=== PATIENT | female | born 1990 | race African-American/Black ===

== ENCOUNTER 2018-05-06 12:57 | Observation (INO) | payer OTHER ==
[2018-05-06] MEDS ORDERED: IV RINGERS,LACTATED 1000ML 1,000 ML IV (13:24)
[2018-05-06 14:01] LABS: AMNIO PT NEGATIVE
[2018-05-06 14:02] LABS: NEG OBC AMNIO NEG; POS OBC AMNIO POS
[2018-05-06 14:10] LABS: BILIRUBIN,URINE NEGATIVE (NEG); CLARITY,URINE CLEAR; COLOR,URINE YELLOW; GLUCOSE,URINE 500 mg/dL (NEG); NITRITE,URINE NEGATIVE (NEG); PH,URINE 6.5; PROTEIN,URINE NEGATIVE (NEG-TRACE)
[2018-05-06 14:16] LABS: BARBITURATES NEG (NEG); BENZODIAZEPINES NEG (NEG); CANNABINOIDS POS (NEG); COCAINE NEG (NEG); METHADONE NEG (NEG); OPIATES NEG (NEG); PHENCYCLIDINE NEG (NEG)
[2018-05-06 14:17] LABS: AMPHETAMINE/METHAMPHETAMINE NEG (NEG); ETHANOL, URINE NEG (NEG)
[2018-05-06 14:34] LABS: BACTERIA,URINE MODERATE /HPF (0-FEW); RBC,URINE 0 /HPF (0-2); SQUAMOUS EPITHELIAL CELL,UR MOD /LPF
== END 2018-05-06 14:55 | disposition home or self-care (01) ==
LOC: 3 SO LND 12:57
DX: O26.893 Other specified pregnancy related conditions, third trimester (principal); R10.9 Unspecified abdominal pain; Z3A.27 27 weeks gestation of pregnancy; Z79.899 Other long term (current) drug therapy
CPT/HCPCS: 36415; 80307; 81001; 84112; 87086; G0378; G0379

== ENCOUNTER 2020-01-18 14:35 | Emergency (ER) | payer SELFPAY ==
[~2020-01-18] VITALS: Ht 165.1 cm; Wt 56.8 kg
--- NOTE | 2020-01-18 15:42 | PHYS DOC ---
Adult General Chief Complaint Chief Complaint: ABDOMINAL PAIN HPI HPI Patient is a 29 year old female who presents with yesterday had a episode where she felt faint and never passed out but there was a woman walking ask her and call her. She states she did not fall or hit her head. She states for the last week she has had left lower sharp pains that come and go. She currently has no pain and no complaints. Patient's test in the ED is positive. Patient states she has not had a period since mid November. Review of Systems Review of Systems Cardiovascular: Palpitations GI: abdominal pain, denies nausea, vomiting, bloody stools or diarrhea [] Neurologic: Syncopal episode. Denies headache, focal weakness or sensory changes [] All other systems were reviewed and found to be within normal limits, except as documented in this note. Allergies Allergies Allergies Coded Allergies Type Severity Reaction Last Updated Verified No Known Drug Allergies 05/06/18 No Physical Exam Physical Exam Constitutional: Well developed, well nourished, no acute distress, non-toxic appearance. [] HENT: Normocephalic, atraumatic, bilateral external ears normal, oropharynx moist, no oral exudates, nose normal. [] Eyes: PERRLA, EOMI, conjunctiva normal, no discharge. [] Neck: Normal range of motion, no tenderness, supple, no stridor. [] Cardiovascular:Heart rate regular rhythm, no murmur [] Lungs & Thorax: Bilateral breath sounds clear to auscultation [] Abdomen: Bowel sounds normal, soft, no tenderness, no masses, no pulsatile masses. [] Skin: Warm, dry, no erythema, no rash. [] Back: No tenderness, no CVA tenderness. [] Extremities: No tenderness, no cyanosis, no clubbing, ROM intact, no edema. [] Neurologic: Alert and oriented X 3, normal motor function, normal sensory function, no focal deficits noted. [] Psychologic: Affect normal, judgement normal, mood normal. Normal Physical Exam[] Current Patient Data Vital Signs Vital Signs Date Time Temp Pulse Resp B/P (MAP) Pulse Ox O2 Delivery O2 Flow Rate FiO2 01/18/20 15:39 97.9 78 16 120/56 (77) 100 Room Air 97.9 Lab Values Laboratory Tests Test 01/18/20 14:35 01/18/20 15:33 01/18/20 16:00 Urine Collection Type Unknown Urine Color Yellow Urine Clarity Clear Urine pH 7.0 (<5.0-8.0) Urine Specific [place] 1.020 (1.000-1.030) Urine Protein Negative mg/dL (NEG-TRACE) Urine Glucose (UA) Negative mg/dL (NEG) Urine Ketones (Stick) Negative mg/dL (NEG) Urine Blood Negative (NEG) Urine Nitrite Negative (NEG) Urine Bilirubin Negative (NEG) Urine Urobilinogen Dipstick 1.0 mg/dL (0.2 mg/dL) Urine Leukocyte Esterase Trace (NEG) Urine RBC 0 /HPF (0-2) Urine WBC 1-4 /HPF (0-4) Urine Squamous Epithelial Cells Many /LPF Urine Bacteria Few /HPF (0-FEW) Urine Mucus Marked /LPF POC Urine HCG, Qualitative Hcg positive (Negative) White Blood Count 6.3 x10^3/uL (4.0-11.0) Red Blood Count 4.26 x10^6/uL (3.50-5.40) Hemoglobin 13.5 g/dL (12.0-15.5) Hematocrit 40.0 % (36.0-47.0) Mean Corpuscular Volume 94 fL (79-100) Mean Corpuscular Hemoglobin 32 pg (25-35) Mean Corpuscular Hemoglobin Concent 34 g/dL (31-37) Red Cell Distribution Width 14.2 % (11.5-14.5) Platelet Count 318 x10^3/uL (140-400) Neutrophils (%) (Auto) 62 % (31-73) Lymphocytes (%) (Auto) 30 % (24-48) Monocytes (%) (Auto) 5 % (0-9) Eosinophils (%) (Auto) 3 % (0-3) Basophils (%) (Auto) 1 % (0-3) Neutrophils # (Auto) 3.9 x10^3/uL (1.8-7.7) Lymphocytes # (Auto) 1.9 x10^3/uL (1.0-4.8) Monocytes # (Auto) 0.3 x10^3/uL (0.0-1.1) Eosinophils # (Auto) 0.2 x10^3/uL (0.0-0.7) Basophils # (Auto) 0.1 x10^3/uL (0.0-0.2) Maternal Serum HCG Beta Subunit 494915 mIU/mL (0-5) H Sodium Level 136 mmol/L (136-145) Potassium Level 3.5 mmol/L (3.5-5.1) Chloride Level 98 mmol/L (98-107) Carbon Dioxide Level 25 mmol/L (21-32) Anion Gap 13 (6-14) Blood Urea Nitrogen 9 mg/dL (7-20) Creatinine 0.6 mg/dL (0.6-1.0) Estimated GFR (Cockcroft-Gault) 145.1 BUN/Creatinine Ratio 15 (6-20) Glucose Level 72 mg/dL (70-99) Calcium Level 9.4 mg/dL (8.5-10.1) Total Bilirubin 0.4 mg/dL (0.2-1.0) Aspartate Amino Transferase (AST) 15 U/L (15-37) Alanine Aminotransferase (ALT) 18 U/L (14-59) Alkaline Phosphatase 77 U/L (46-116) Total Protein 8.4 g/dL (6.4-8.2) H Albumin 4.6 g/dL (3.4-5.0) Albumin/Globulin Ratio 1.2 (1.0-1.7) Lipase 114 U/L (73-393) Laboratory Tests 01/18/20 16:00 Laboratory Tests 01/18/20 16:00 EKG EKG NSR[] Interpretation Time: [address] Ryan Radiology/Procedures Radiology/Procedures [] Impressions: [facility] [address] [place] [address] IMAGING REPORT Signed PATIENT: CINTHIA MERCER ACCOUNT: [id number] : 1990 LOCATION: ER AGE: 29 SEX: F EXAM STATUS: REG ER ORD. PHYSICIAN: MERLE ROJAS APRN REASON: , left lower quad pain PROCEDURE: OB <14 WKS W/TV Study: OB <14 WKS W/TV DATE: 01/18/2020 3:38 PM INDICATION: Left lower quadrant pain in the setting of a known . COMPARISON: None TECHNIQUE: Transabdominal ultrasonography of the pelvis was performed. Color Doppler and duplex were utilized as appropriate. FINDINGS: The uterus measures 14.8 x 5.1 x 7.9 cm. Uterine echotexture is within normal limits. Intrauterine gestational sac measuring 3.0 x 1.8 x 2.9 cm for a mean gestational sac size of 2.6 cm. pole with a crown-rump length of 1.2 cm. Estimated gestational age by ultrasound of 7 weeks 3 days. No subchorionic hemorrhage is identified. heart rate of 149 bpm. The right ovary measures 4.6 x 2.5 x 3.9 cm. Right ovarian cyst measures 3.1 x 3.0 x 3.6 in meters. Normal Doppler flow to the right ovary. The left ovary measures 2.5 x 2.1 x 3.5 cm with normal Doppler flow. No free fluid within the pelvic cul-de-sac. IMPRESSION: 1. Single live intrauterine with an estimated gestational age by ultrasound of 7 weeks 3 days. No complicating features. 2. The ovaries are within normal limits for patient age and maintain normal Doppler flow. Electronically signed by: MERYL LAM MD (01/18/2020 4:59 PM) [facility] [place] DICTATED and SIGNED BY: MERYL LAM MD DATE: 01/18/201658 Course & Med Decision Making Course & Med Decision Making Pertinent Labs and Imaging studies reviewed. (See chart for details) Alert and oriented. Speaks full clear sentences. Ambulatory the steady gait. PERRLA. No neurological deficits. Abdomen is soft and nontender. Denies any abnormal vaginal discharge. Denies any vaginal bleeding. Denies chest pain, soa, cough, fever, back pain, neck pain, dysuria, nausea, vomiting, diarrhea, we akness, numbness or tingling, vision changes, headache, dizziness. Urinalysis contaminated but positive for . Blood work unremarkable. [] Dragon Disclaimer Dragon Disclaimer This electronic medical record was generated, in whole or in part, using a voice recognition dictation system. Departure Departure Impression: Primary Impression: Additional Impression: Fainting spell Disposition: 01 HOME, SELF-CARE Condition: STABLE Referrals: OLEKSANDR KAUR (PCP) JEANETH MONTANEZ Jr, MD Patient Instructions: ABCs of Additional Instructions: DRINK PLENTY OF FLUIDS. EAT REGULARLY. BEGIN TAKING VITAMINS. FOLLOW UP WITH A OB DOCTOR SOON POSSIBLE. TAKE ONLY TYLENOL FOR PAIN. Problem Qualifiers Primary Impression: Weeks of gestation: unspecified Qualified Codes: Z34.90 - Encounter for supervision of normal , unspecified, unspecified trimester MERLE ROJAS APRN Jan 18, 2020 15:42
[2020-01-18 15:48] LABS: BILIRUBIN,URINE NEGATIVE (NEG); CLARITY,URINE CLEAR; COLOR,URINE YELLOW; NITRITE,URINE NEGATIVE (NEG); PROTEIN,URINE NEGATIVE (NEG-TRACE)
[2020-01-18 15:56] LABS: BACTERIA,URINE FEW /HPF (0-FEW); RBC,URINE 0 /HPF (0-2); SQUAMOUS EPITHELIAL CELL,UR MANY /LPF
[2020-01-18 16:14] LABS: BASO # 0.1 x10^3/uL (0.0-0.2); BASO % 1 % (0-3); EOS # 0.2 x10^3/uL (0.0-0.7); EOS % 3 % (0-3); HEMOGLOBIN 13.5 g/dL (12.0-15.5); LYMPH # 1.9 x10^3/uL (1.0-4.8); LYMPH % 30 % (24-48); MEAN CORPUSCULAR HEMOGLOBIN 32 pg (25-35); MEAN CORPUSCULAR HGB CONC 34 g/dL (31-37); MEAN CORPUSCULAR VOLUME 94 fL (79-100); MONO # 0.3 x10^3/uL (0.0-1.1); MONO % 5 % (0-9); NEUT # 3.9 x10^3/uL (1.8-7.7); NEUT % 62 % (31-73); PLATELET COUNT 318 x10^3/uL (140-400); RED BLOOD COUNT 4.26 x10^6/uL (3.50-5.40); RED CELL DISTRIBUTION WIDTH 14.2 % (11.5-14.5); WHITE BLOOD COUNT 6.3 x10^3/uL (4.0-11.0)
[2020-01-18 16:24] LABS: CALCIUM 9.4 mg/dL (8.5-10.1); CREATININE 0.6 mg/dL (0.6-1.0); GFR 145.1; POTASSIUM 3.5 mmol/L (3.5-5.1)
[2020-01-18 16:29] LABS: ALBUMIN 4.6 g/dL (3.4-5.0); ALBUMIN/GLOBULIN RATIO 1.2 (1.0-1.7); TOTAL BILIRUBIN 0.4 mg/dL (0.2-1.0); TOTAL PROTEIN 8.4 g/dL (6.4-8.2)
[2020-01-18 17:00] VITALS: BP 116/74
--- NOTE | 2020-01-18 17:02 | RAD ---
Study: us OB <14 WKS W/TV DATE: 01/18/2020 3:38 PM INDICATION: Left lower quadrant pain in the setting of a known . COMPARISON: None TECHNIQUE: Transabdominal ultrasonography of the pelvis was performed. Color Doppler and duplex were utilized as appropriate. FINDINGS: The uterus measures 14.8 x 5.1 x 7.9 cm. Uterine echotexture is within normal limits. Intrauterine gestational sac measuring 3.0 x 1.8 x 2.9 cm for a mean gestational sac size of 2.6 cm. pole with a crown-rump length of 1.2 cm. Estimated gestational age by ultrasound of 7 weeks 3 days. No subchorionic hemorrhage is identified. heart rate of 149 bpm. The right ovary measures 4.6 x 2.5 x 3.9 cm. Right ovarian cyst measures 3.1 x 3.0 x 3.6 in meters. Normal Doppler flow to the right ovary. The left ovary measures 2.5 x 2.1 x 3.5 cm with normal Doppler flow. No free fluid within the pelvic cul-de-sac. IMPRESSION: 1. Single live intrauterine with an estimated gestational age by ultrasound of 7 weeks 3 days. No complicating features. 2. The ovaries are within normal limits for patient age and maintain normal Doppler flow. Electronically signed by: MERYL LAM MD (01/18/2020 4:59 PM) [facility] [place]
--- NOTE | 2020-01-18 19:47 | EKG ---
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
== END 2020-01-18 17:15 | disposition home or self-care (01) ==
LOC: ER 14:35
DX: O26.891 Other specified pregnancy related conditions, first trimester (principal); R10.32 Left lower quadrant pain; R55 Syncope and collapse; Z3A.01 Less than 8 weeks gestation of pregnancy
CPT/HCPCS: 36415; 76801; 76817; 80053; 81001; 81025; 83690; 84702; 85025; 87086; 93005; 99285

== ENCOUNTER 2021-01-08 05:57 | Emergency (ER) | payer MEDICAID ==
[~2021-01-08] VITALS: Ht 165.1 cm; Wt 57.7 kg
--- NOTE | 2021-01-08 06:40 | EKG ---
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
--- NOTE | 2021-01-08 06:45 | RAD ---
XR CHEST 1V INDICATION: rib pain COMPARISON STUDY: None. FINDINGS: Lungs: Normal lung volume. No pulmonary mass or consolidation. The tracheobronchial tree and hilar st ructures are normal. Pleura: No pleural effusion or pneumothorax. Heart and Mediastinum: The cardiomediastinal silhouette is normal. The great vessels of the thorax ar e normal. Bones and Soft Tissues: The bones and soft tissues are within normal limits. IMPRESSION: No acute cardiopulmonary process. Electronically signed by: Jarek Wiggins MD (01/08/2021 6:42 AM) [facility]
[2021-01-08] MEDS ORDERED: KETOROLAC 60 MG/2 ML VIAL. IM ONE (07:00)
--- NOTE | 2021-01-08 07:06 | ED.ADGEN ---
Past Medical History Past Medical History: Depression Past Surgical History: No Surgical History Smoking Status: Current Every Day Smoker Alcohol Use: Occasionally General Adult EDM: Chief Complaint: CHEST WALL PAIN HPI: HPI: Patient is 30-year-old previously healthy female who presents to the emergency room complaining of right-sided chest pain. Patient states she woke up this morning with it. She states she was trying to get dressed for work when she st arted getting pain when she moved. She states that if she lifts her arms over her head she has no pain. She otherwise has pain anytime she moves or takes deep breaths. She denies any kind of shortness of breath, diaphoresis, cough, URI symptoms, fever, chills, sweats, trauma. She has never had anything like this before. She does not have a family history of early cardiac disease or . Pain is associated mostly with movement and not with exertion. Review of Systems: Review of Systems: Complete ROS is negative unless otherwise documented in HPI Current Medications: Current Medications Medications (Trade) Dose Ordered Sig/Natacha Start Time Stop Time Status Last Admin Dose Admin Ketorolac Tromethamine (Toradol Im) 60 mg 1X ONCE 01/08/21 07:00 01/08/21 07:02 DC Allergies: Allergies: Allergies Coded Allergies Type Severity Reaction Last Updated Verified No Known Drug Allergies 05/06/18 No Physical Exam: PE: General: Awake, alert, NAD. Well Nourished, well hydrated. Cooperative HEENT: Atraumatic, EOMI, PERRL, airway patent, moist oral mucosa Neck: Supple, trachea midline Respiratory: CTA bilaterally, normal effort, no wheezing/crackles, diffuse left- sided chest wall tenderness CV: RRR, no murmur, cap refill <2 GI: Soft, nondistended, nontender, no masses MSK: No obvious deformities Skin: Warm, dry, intact Neuro: A&O x3, speech NL, sensory and motor grossly intact, no focal deficits Psych: Normal affect, normal mood, not suicidal or homicidal Current Patient Data: Labs: Laboratory Tests Test 01/08/21 06:16 POC Urine HCG, Qualitative Hcg negative (Negative) Vital Signs: Vital Signs Date Time Temp Pulse Resp B/P (MAP) Pulse Ox O2 Delivery O2 Flow Rate FiO2 01/08/21 06:13 98.1 74 20 143/87 (105) 99 Room Air 98.1 EKG: EKG: [] Heart Score: C/O Chest Pain: Yes HEART Score for Chest Pain: HEART Score for Chest Pain Response (Comments) Value History Slighlty/Non-Suspicious 0 ECG Normal 0 Age < 45 0 Risk Factors No Risk Factors 0 Troponin < Normal Limit 0 Total 0 Risk Factors: Risk Factors: DM, Current or recent (<one month) smoker, HTN, HLP, family history of CAD, obesity. Risk Scores: Score 0 - 3: 2.5% MACE over next 6 weeks - Discharge Home Score 4 - 6: 20.3% MACE over next 6 weeks - Admit for Clinical Observation Score 7 - 10: 72.7% MACE over next 6 weeks - Early Invasive Strategies Radiology/Procedures: Radiology/Procedures: [] Course & Med Decision Making: Course & Med Decision Making Pertinent Labs and Imaging studies reviewed. (See chart for details) Patient is a 30yo female who presents to the ED c/o atypical chest pain. Patient does not have any risk factors for cardiac disease and at this time their pain does not sound cardiac in nature. Patient is Well's score 0 and PERC negative making PE unlikely. On exam, patient has bilateral breath sounds, equal pulses bilaterally, and stable vitals making aortic aneurysm, pneumonia, PTX, tamponade unlikely. EKG was done and shows NSR at this time. Due to patient being low risk they do not need further work up for their chest pain at this time. Chest pain is likely musculoskeletal/GERD in nature. Patient will be discharged home to follow up with primary care. Strict return precautions were given and plan of care was discussed with patient. Patient states understanding and will follow up in clinic. Tripp Disclaimer: Tripp Disclaimer: This electronic medical record was generated, in whole or in part, using a voice recognition dictation system. Departure Departure Impression: Primary Impression: Costochondral chest pain Disposition: 01 DC HOME SELF CARE/HOMELESS Condition: STABLE Referrals: NO PCP (PCP) Patient Instructions: Chest Wall Pain NISHANT GRANADOS MD Jan 08, 2021 07:06
[2021-01-08 07:14] VITALS: BP 126/79
== END 2021-01-08 07:30 | disposition home or self-care (01) ==
LOC: ER 05:57
DX: R07.89 Other chest pain (principal); F17.200 Nicotine dependence, unspecified, uncomplicated; F32.9 Major depressive disorder, single episode, unspecified
CPT/HCPCS: 71045; 81025; 93005; 96372; 99283; J1885; 99284